=== PATIENT | female | born 1985 ===

== ENCOUNTER 2016-05-28 10:39 | Emergency (ER) | payer OTHER ==
[2016-05-28 10:39] VITALS: BMI 22.4
[2016-05-28 10:45] VITALS: BP 121/85; RESP 18; TEMP 98.1
--- NOTE | 2016-05-28 12:00 | C.PDOC ---
History Of Present Illness 30 year old female presents to the ED with complaints of pain and swelling next to her anus after a bowel movement 2 days ago. Patient has never experienced this before and denies bleeding, urinary symptoms, fever, or any other complaints at this time. Time Seen by Provider: 05/28/16 11:34 Chief Complaint (Nursing): Medical Clearance History Per: Patient History/Exam Limitations: no limitations Onset/Duration Of Symptoms: Days Current Symptoms Are (Timing): Still Present Severity: Mild Past Medical History Reviewed: Historical Data, Nursing Documentation, Vital Signs Vital Signs: Last Vital Signs Temp 98.1 F 05/28/16 10:43 Pulse 79 05/28/16 12:04 Resp 18 05/28/16 12:04 BP 121/85 05/28/16 10:43 Pulse Ox 98 05/28/16 12:04 - Medical History PMH: No Chronic Diseases Surgical History: Appendectomy - [employer] Procedures MANUAL ASSIST 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 Constitutional: Negative for: Fever, Chills Gastrointestinal: Positive for: Other (+Pain and swelling next to the anus). Negative for: Abdominal Pain Genitourinary: Negative for: Dysuria, Frequency Physical Exam - Physical Exam Appears: Non-toxic, No Acute Distress Skin: Normal Color, Warm, Dry Head: Atraumatic, Normacephalic Eye(s): bilateral: Normal Inspection Oral Mucosa: Moist Gastrointestinal/Abdominal: Soft Rectal: Hemorrhoids (+tender external hemorrhoid. Non-thrombosed or inflammed) Extremity: Normal ROM Neurological/Psych: Oriented x3, Normal Speech, Normal Cognition ED Course And Treatment O2 Sat by Pulse Oximetry: 100 (Room air) Pulse Ox Interpretation: Normal Progress Note: Rx given and patient advised to follow up with her PMD in 1-2 days. Disposition - Disposition Referrals: [facility] [Outside] Disposition: HOME/ ROUTINE Disposition Time: 11:57 Condition: GOOD Additional Instructions: Follow up with PMD within 1-2 days. Return to ED if feel worse. Prescriptions: Docusate [Colace] 100 mg PO BID #20 cap Hydrocortisone-Pramoxine 1%-1% [Proctofoam-Hc 1%-1%] 1 appl TP 5XD #1 aer Instructions: Hemorrhoids (ED) Print Language: LATVIAN - Clinical Impression Clinical Impression: Hemorrhoids, external without complications - PA / INSTRUCTIONAL TECHNOLOGY INSTRUCTOR / Resident Statement MD/DO has reviewed & agrees with the documentation as recorded. - Scribe Statement The provider has reviewed the documentation as recorded by the Scribe Narendra Reynaga. All medical record entries made by the Scribe were at my direction and personally dictated by me. I have reviewed the chart and agree that the record accurately reflects my personal performance of the history, physical exam, medical decision making, and the department course for this patient. I have also personally directed, reviewed, and agree with the discharge instructions and disposition.
[2016-05-28 12:05] VITALS: PULSE 79
[2016-05-28 13:31] VITALS: O2SAT 100
== END 2016-05-28 12:06 | disposition home or self-care (01) ==
LOC: C.ER 10:39
DX: K64.4 Residual hemorrhoidal skin tags (principal)

== ENCOUNTER 2018-05-11 11:21 | Emergency (ER) | payer OTHER ==
[2018-05-11 11:21] VITALS: BMI 22.4
[2018-05-11 11:44] VITALS: BP 136/86; PULSE 123; RESP 20; O2SAT 100
--- NOTE | 2018-05-11 12:43 | C.PDOC ---
History Of Present Illness 32 y/o female presents to the ED complaining of subjective fever since Tuesday 05/09. Associated with chills, odynophagia, body aches, and headache. Admits to sick contact in her , who is sick at home with similar symptoms. Patient reports she took Motrin last night but awoke with worsening sore throat. She did not take any antipyretics today. Pain is rated 8/10. Otherwise she denies any dizziness, nasal congestion, rhinorrhea, SOB, chest pain, coughing, nausea, vomiting, diarrhea, or abdominal pain. 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) History/Exam Limitations: no limitations Onset/Duration Of Symptoms: Days (x 2) Current Symptoms Are (Timing): Still Present Location Of Pain: Throat Associated Symptoms: Fever, Chills Past Medical History Reviewed: Historical Data, Nursing Documentation, Vital Signs Vital Signs: Last Vital Signs Temp 100.5 F H 05/11/18 11:32 Pulse 123 H 05/11/18 11:32 Resp 20 05/11/18 11:32 BP 136/86 05/11/18 11:32 Pulse Ox 100 05/11/18 11:32 - Medical History PMH: No Chronic Diseases Surgical History: Appendectomy - [facility] Procedures MANUAL ASSIST DELIV NEC (05/11/14) 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) REPAIR OB LAC RECT/ANUS (05/11/14) Family History: States: Unknown Family Hx - Social History Hx Tobacco Use: No Hx Alcohol Use: No Hx Substance Use: No - Immunization History Hx Tetanus Toxoid Vaccination: No Hx Influenza Vaccination: Yes Hx Pneumococcal Vaccination: No Review Of Systems Constitutional: Positive for: Fever, Chills ENT: Positive for: Throat Pain, Other (odynophagia) Cardiovascular: Negative for: Chest Pain Respiratory: Negative for: Cough, Shortness of Breath Gastrointestinal: Negative for: Vomiting, Abdominal Pain, Diarrhea Genitourinary: Negative for: Dysuria, Frequency Neurological: Positive for: Headache. Negative for: Weakness, Numbness, Dizziness Physical Exam - Physical Exam Appears: Non-toxic, No Acute Distress Skin: Normal Color, Warm, Dry Head: Atraumatic, Normacephalic Eye(s): bilateral: Normal Inspection, PERRL, EOMI Throat: Erythema (to pharynx), No Exudate Neck: Supple Lymphatic: Adenopathy (+ submandibular lymphadenopathy bilaterally) Chest: Symmetrical Cardiovascular: Rhythm Regular Respiratory: Normal Breath Sounds, No Accessory Muscle Use Extremity: Bilateral: Atraumatic, Normal Color And Temperature Neurological/Psych: Oriented x3 ED Course And Treatment O2 Sat by Pulse Oximetry: 100 (RA) Pulse Ox Interpretation: Normal Medical Decision Making Medical Decision Making: Impression: Flu-like symptoms Plan: - Patient given 975 mg PO Tylenol on arrival - Flu swab and rapid strep test neg but suspicious for flu -will treat with tamiflu now and continue as outpatient - encouraged rest and hydration - advised to follow up with PMD in 1-2 days - patient verbalized understanding and is in agreement with plan Disposition Counseled Patient/Family Regarding: Studies Performed, Diagnosis, Need For Fo llowup, Rx Given - Disposition Referrals: [facility] [Outside] Disposition: HOME/ ROUTINE Disposition Time: 14:00 Condition: STABLE Additional Instructions: Continue Tamiflu for 5 days Alternate with Tylenol and Motrin every 4-6 hrs to reduce fever Salt water gargles 4 times a day for sore throat Rest and hydration Follow up wit PMD or Clinic in 1-2 days Return to ED if symptoms worsen Prescriptions: Acetaminophen [Tylenol] 325 mg PO Q6 PRN #30 capsule PRN Reason: Fever >100.4 F Ibuprofen [Motrin] 400 mg PO Q6 PRN #30 tab PRN Reason: Fever >100.4 F Oseltamivir Phosphate [Tamiflu] 75 mg PO BID #9 capsule Instructions: Viral Syndrome (DC) Forms: [employer] (Citizen [place]), Work Excuse Print Language: RWANDAN - Clinical Impression Clinical Impression: Influenza-like illness - PA / CITRUS PEELER / Resident Statement MD/DO has reviewed & agrees with the documentation as recorded. - Scribe Statement The provider has reviewed the documentation as recorded by the Scribisabel Childress All medical record entries made by the Scribisabel were at my direction and personally dictated by me. I have reviewed the chart and agree that the record accurately reflects my personal performance of the history, physical exam, medical decision making, and the department course for this patient. I have also personally directed, reviewed, and agree with the discharge instructions and disposition.
[2018-05-11 13:47] LABS: INFLUENZA A B NEGATIVE FOR FLU A/B (NEGATIVE)
[2018-05-11 14:12] VITALS: TEMP 98.4
== END 2018-05-11 14:11 | disposition home or self-care (01) ==
LOC: C.ER 11:21
DX: J11.1 Influenza due to unidentified influenza virus with other respiratory manifestations (principal)